=== PATIENT | female | born 1960 | race Caucasian/White ===

== ENCOUNTER → 2022-03-24 | Outpatient (CLI) | payer BC ==
[~2022-03-24] MED LIST: DAILY VALUE1 EACH PO; ECOTRIN81 MG PO; FISH OIL 1,0001 EAC4 PO; NORCO 5-325 TA1 EACH PO; PERCOCET 10-321 EACH PO
== END ==
LOC: MAMO 10:18
DX: Z12.31 Encounter for screening mammogram for malignant neoplasm of breast (principal)
CPT/HCPCS: 77063; 77067